=== PATIENT | female | born 1980 | race Caucasian/White ===

== ENCOUNTER 2019-01-12 18:58 | Emergency (ER) | payer OTHER ==
[~2019-01-12] VITALS: Ht 162.6 cm; Wt 52.2 kg
[2019-01-12 19:15] VITALS: BP_SYST 115
[2019-01-12] MEDS ORDERED: LISD40TA PO (19:22)
[2019-01-12] MEDS ORDERED: BUPR300T55 PO (19:23)
[2019-01-12] MEDS ORDERED: TRAZ-218 PO (19:23)
[2019-01-12] MEDS ORDERED: LORazepam 1 MG TABLET PO ONE (20:00)
[2019-01-12 20:32] VITALS: BP_SYST 122
== END 2019-01-12 20:32 | disposition home or self-care (01) ==
LOC: SED 18:58
DX: F41.9 Anxiety disorder, unspecified (principal); R03.0 Elevated blood-pressure reading, without diagnosis of hypertension; F17.210 Nicotine dependence, cigarettes, uncomplicated; Z79.899 Other long term (current) drug therapy
CPT/HCPCS: 96372; 99284